=== PATIENT | male | born 1960 | race Caucasian/White ===

== ENCOUNTER 2017-05-26 00:43 | Emergency (ER) | payer MEDICARE, MEDICAID ==
[2017-05-26] MEDS ORDERED: Succinylcholine 200 MG/10 ML MDV ONE (00:49)
[2017-05-26] MEDS ORDERED: Succinylcholine 200 MG/10 ML MDV IV ONE (00:50)
[2017-05-26] MEDS ORDERED: EPINEPHrine 1:10,000 1 MG/10 ML Syringe IV ONE ×5 (00:50→01:30)
[2017-05-26] MEDS ORDERED: Sodium Bicarbonate 8.4% 50 MEQ/50 ML Syringe IV ONE ×2 (01:31→01:33)
--- NOTE | 2017-05-26 09:03 | ANES ---
DATE OF SERVICE: 05/26/2017 TIME: Approximately 0120. I was called to the emergency room to intubate Mr. Redmond, due to the fact that he was in cardiopulmonary arrest. I am unsure of how long they had been working on him, but I was there to perform an intubation. When I arrived, he had a Lorenzo tube placed, as well as an orogastric tube through that. I removed the Lorenzo tube and used the 3 MAC blade to visualize the vocal cords. He did have a grade 2 view. I was able to intubate him with an 8.0 endotracheal tube with a stylet. Positive end-tidal CO2 was obtained. Equal breath sounds were also obtained. The endotracheal tube was secured via the respiratory therapy staff. I then attempted to start an IV. I tried twice before, I was able to get into the right wrist area. An 18-gauge IV was inserted into the right wrist. This was then secured with Tegaderm and tape. I do believe shortly thereafter they called the code with the patient being . Mat Santizo CRNA /[id number]
--- NOTE | 2017-06-01 18:05 | EDM.PDOC ---
ED HPI GENERAL MEDICAL PROBLEM - General Chief Complaint: CPR in Progress Stated Complaint: MED[facility] Time Seen by Provider: 05/26/17 02:38 Source of Information: Reports: EMS, Family History Limitations: Reports: Other (Unresponsive) - History of Present Illness INITIAL COMMENTS - FREE TEXT/NARRATIVE: This 56-year-old white male was at home when he suddenly began experiencing severe shortness of breath. EMS was called. They found him sitting outside and appeared to be in respiratory distress. The patient was transported to the hospital but suffered respiratory arrest shortly before arriving in the emergency department. His later stated that he has had heart and lung problems in the past - Related Data Allergies Allergy/AdvReac Type Severity Reaction Status Date / Time No Known Allergies Allergy Verified 02/26/16 12:26 Home Meds: Home Meds Insulin Glarg,Human.Rec.Analog [Lantus Solostar] 30 units SQ BEDTIME 11/09/15 [ History] Lisinopril [Lisinopril] 20 mg PO DAILY 11/09/15 [History] Simvastatin [Simvastatin] 40 mg PO DAILY 11/09/15 [History] metFORMIN [Glucophage] 1,000 mg PO DAILY 11/09/15 [History] Aspirin 81 mg PO DAILY 12/15/15 [History] Liraglutide [Victoza] 1.2 units SQ DAILY 02/26/16 [History] [place], Insulin Disposable [Novofine 32] 02/26/16 [History] Past Medical History HEENT History: Reports: Impaired Vision Cardiovascular History: Reports: Arrhythmia, High Cholesterol, Hypertension Gastrointestinal History: Reports: Colon Polyp, Other (See Below) Other Gastrointestinal History: inguinal hernia Genitourinary History: Reports: None Musculoskeletal History: Reports: Arthritis, Other (See Below) Other Musculoskeletal History: spurs in lower back Neurological History: Reports: Concussion, Migraines Endocrine/Metabolic History: Reports: Diabetes, Type II, IDDM, Obesity/BMI 30+ Oncologic (Cancer) History: Reports: Colon Dermatologic History: Reports: Other (See Below) Other Dermatologic History: dry skin - Infectious Disease History Infectious Disease History: Reports: Mumps - Past Surgical History GI Surgical History: Reports: Cholecystectomy, Colonoscopy, Hernia Repair/Other Social & Family History - Tobacco Use Smoking Status *Q: Never Smoker Second Hand Smoke Exposure: No - Recreational Drug Use Recreational Drug Use: No ED ROS GENERAL - Review of Systems Review Of Systems: Unable To Obtain ED EXAM, CPR - Physical Exam Exam: See Below Limited By: Unresponsive General Appearance: Other (Patient has suffered respiratory arrest he is deeply cyanotic. EMS is attempting to bag this patient) Eye Exam: Bilateral Eye: Other (Pupils are fixed and dilated) Throat/Mouth: Other (Airway appears to be an adequate as EMS is having difficulty making this patient) Head: Atraumatic Respiratory Chest: Other (There are little breath sounds heard as the patient is being bagged) Cardiovascular: CPR In Progress (The patient became pulseless shortly after arrival and compressions were started with the Marcell device) GI/Abdominal Exam: Soft Neurological: Unresponsive Skin Exam: Cool, Cyanosis Course - Orders/Labs/Meds Labs: Laboratory Tests 05/26/17 Range/Units 01:10 Puncture Site L femoral ABG pH 6.993 L* (7.350-7.450) ABG pCO2 87.0 H* (35.0-42.0) mmHg ABG pO2 14.7 L* (75.0-100.0) mmHg ABG HCO3 20.1 L (22.0-26.0) mmol/L ABG Total CO2 20.4 L (23.0-27.0) mmol/L ABG O2 Saturation 7.8 L (95.0-98.0) % ABG O2 Content 1.7 L (15.0-23.0) %vol ABG Base Excess -14.7 mm/L ABG Hemoglobin 15.7 (13.5-18.0) g/dL ABG Oxyhemoglobin 7.8 % ABG Carboxyhemoglobin 0.2 (0.0-1.6) % ABG Methemoglobin 0.1 % O2 Delivery Device Resuscitation bag Oxygen Flow Rate L Meds: Medications Discontinued Medications Generic Name Dose Route Start Last Admin Trade Name Freq PRN Reason Stop Dose Admin Epinephrine HCl 1 mg 05/26/17 00:50 05/26/17 00:58 Epinephrine 1:10,000 IV 05/26/17 00:51 1 mg ONETIME ONE Administration Epinephrine HCl 1 mg 05/26/17 00:55 05/26/17 01:02 Epinephrine 1:10,000 IV 05/26/17 00:56 1 mg ONETIME ONE Administration Epinephrine HCl 1 mg 05/26/17 01:05 05/26/17 01:10 Epinephrine 1:10,000 IV 05/26/17 01:06 1 mg ONETIME ONE Administration Epinephrine HCl 1 mg 05/26/17 01:15 05/26/17 01:14 Epinephrine 1:10,000 IV 05/26/17 01:16 1 mg ONETIME ONE Administration Epinephrine HCl 1 mg 05/26/17 01:30 05/26/17 01:32 Epinephrine 1:10,000 IV 05/26/17 01:31 1 mg ONETIME ONE Administration Sodium Bicarbonate 50 meq 05/26/17 01:31 05/26/17 01:31 Sodium Bicarbonate 8.4% IV 05/26/17 01:32 50 meq ONETIME ONE Administration Sodium Bicarbonate 50 meq 05/26/17 01:33 05/26/17 01:33 Sodium Bicarbonate 8.4% IV 05/26/17 01:34 50 meq ONETIME ONE Administration Succinylcholine Chloride Confirm 05/26/17 00:49 05/27/17 09:20 Quelicin Administered 05/26/17 00:50 Not Given Dose 200 mg .ROUTE .STK-MED ONE Succinylcholine Chloride 200 mg 05/26/17 00:50 05/26/17 00:50 Quelicin IV 05/26/17 00:51 200 mg ONETIME ONE Administration - Re-Assessments/Exams Free Text/Narrative Re-Assessment/Exam: 06/01/17 17:57 This patient had suffered respiratory arrest prior to arrival. He was being bagged upon arrival to the ER. On the way into the emergency department one of the mechanic's assistant began performing some compressions but has been told that he had a pulse of that was discontinued. The patient arrived in our emergency department monitor did show he was in a sinus rhythm pulses were palpable. He was being bagged there were some breath sounds heard at least intermittently because it but because of his very large body habitus it was very difficult to hear breath sounds. Ventilation by bag valve mask appeared to be inadequate. A nasal trumpet device was inserted. In preparation for intubation a blanket or towel was rolled up and placed underneath his shoulders. Laryngoscope with a large straight blade was then used in an attempt to intubate the patient however cords could not be visualized. Therefore once an IV was established he was given 200 mg of succinyl choline. I then attempted to intubate him again. Cords were visualized however the patient had a great deal of redundant tissues in the pharynx which made intubation with the ET tube very difficult. Several attempts were made to intubate him in this manner and he was bagged in between each attempt. At one point his O2 sat appeared to come up to 99 at other times they said dropped precipitously. We then obtained a DDO laryngoscope from EMS similar to the glide scope but with the LCD screen actually only laryngoscope. Again the cords could be visualized but we were unable to direct the tube into the glottis. The EMT then attempted but was also unable to do this. By this time anesthesia had been called and arrived a short while later. The vice president mission integration was able to intubate the patient. Prior to this some consideration had been given to trying a surgical airway however examination of the neck showed that with the heavy thick tissues it would've been very difficult if not impossible. By this time the patient had gone in to pulseless electrical activity and then finally into asystole. Blood gas was obtained which showed a mixed acidosis with a pH of about 6.9. An initial intraosseous needle was found to be not usable so EMS had placed a second one in the right leg. I replaced the one in the left upper tibia both of them appeared to be working with some difficulty. We gave to doses of sodium bicarbonate but that seemed to make no difference. He remained in asystole. I spoke with the family and brought the patient's back into the ER and she was able to sit with the her . Dr. Pierre was there at that time and we discussed the patient and the fact that there appeared to be no point in continuing CPR. Therefore the code was discontinued and he was pronounced . Tubes remain in place until it was determined that this was not a director of medical review case Departure - Departure Time of Disposition: 18:05 Disposition: 20 Preliminary Cause of *Q: Respiratory Failure Clinical Impression: Respiratory arrest - Discharge Information Forms: ED Department Discharge
== END 2017-05-26 08:48 | disposition expired ==
LOC: JP.ED 00:43
DX: R09.2 Respiratory arrest (principal); H54.7 Unspecified visual loss; E78.00 Pure hypercholesterolemia, unspecified; I10 Essential (primary) hypertension; M19.90 Unspecified osteoarthritis, unspecified site; G43.909 Migraine, unspecified, not intractable, without status migrainosus; E10.9 Type 1 diabetes mellitus without complications; E66.9 Obesity, unspecified; Z90.49 Acquired absence of other specified parts of digestive tract; Z98.890 Other specified postprocedural states; Z79.4 Long term (current) use of insulin; Z79.84 Long term (current) use of oral hypoglycemic drugs; Z79.82 Long term (current) use of aspirin
CPT/HCPCS: 36600; 82803; 96374; 96375; 96376; 99284; J0171; J0330; 99285